=== PATIENT | female | born 1970 | race Caucasian/White ===

== ENCOUNTER 2016-11-10 11:46 | Emergency (ER) | payer SELFPAY ==
[~2016-11-10] VITALS: Ht 160 cm; Wt 67.3 kg
[2016-11-10 12:17] LABS: GLUCOSE,POINT OF CARE 94 MG/DL (70-110)
[2016-11-10 12:47] VITALS: BP 118/81
== END 2016-11-10 13:36 | disposition home or self-care (01) ==
LOC: EMS 11:56
DX: S89.91XA Unspecified injury of right lower leg, initial encounter (principal); X50.1XXA Overexertion from prolonged static or awkward postures, initial encounter; Y93.89 Activity, other specified; Y92.9 Unspecified place or not applicable; Y99.9 Unspecified external cause status; Z88.6 Allergy status to analgesic agent
CPT/HCPCS: 81025; 82962; 99284

== ENCOUNTER 2018-12-09 05:27 | Day surgery (SDC) | payer OTHER ==
[~2018-12-09] VITALS: Ht 160 cm; Wt 66.4 kg
[~2018-12-09 05:27] MED LIST: FLUT16H NASAL; LORA10TA7 PO; METF-960 PO
[2018-12-09] MEDS ORDERED: ROCURONIUM BROMIDE 10 MG/ML 5 ML VIAL IVP ONE (05:28)
[2018-12-09] MEDS ORDERED: LIDOCAINE/PF 2% 5 ML VIAL IM ONE (05:28)
[2018-12-09] MEDS ORDERED: ESMOLOL HCL 10 MG/ML 10 ML VIAL IVP ONE (05:28)
[2018-12-09] MEDS ORDERED: ONDANSETRON HCL 4 MG/2 ML VIAL IVP ONE (05:28)
[2018-12-09] MEDS ORDERED: PROPOFOL 1% 20 ML VIAL IVP ONE (05:28)
[2018-12-09] MEDS ORDERED: ALBUTEROL SULFATE HFA 90 MCG/PUFF 8 GM INHALER IH ONE (05:28)
[2018-12-09] MEDS ORDERED: KETOROLAC TROMETHAMINE 60 MG/2 ML VIAL IM ONE (05:28)
[2018-12-09] MEDS ORDERED: METOCLOPRAMIDE HCL 5 MG/ML 2 ML VIAL IVP ONE (05:28)
[2018-12-09] MEDS ORDERED: FentaNYL CITRATE-PF 100 MCG/2 ML VIAL IVP ONE (05:28)
[2018-12-09] MEDS ORDERED: MIDAZOLAM HCL 2 MG/2 ML VIAL IVP ONE (05:28)
[2018-12-09] MEDS ORDERED: RINGERS SOLUTION,LACTATED 1,000 ML IV ONE ×3 (05:31→08:32)
[2018-12-09] MEDS ORDERED: CeFAZolin 2 GM/DEXTROSE 50 ML IV ONE ×2 (05:32→07:30)
[2018-12-09 06:06] LABS: EOSINOPHILS % (AUTO) 2.7 % (1.0-6.0); HEMATOCRIT 44.3 % (36-46); HEMOGLOBIN 14.8 g/dL (12.0-16.0); LYMPHOCYTES # (AUTO) 2.1 K/uL (1.0-4.8); LYMPHOCYTES % (AUTO) 36.8 % (22.0-44.0); MEAN CORPUSCULAR HEMOGLOBIN 30.4 pg (26.0-34.0); MEAN CORPUSCULAR HGB CONC 33.3 G/dL (31.0-37.0); MEAN CORPUSCULAR VOLUME 91 fL (80-100); MONOCYTES # (AUTO) 0.3 K/uL (0.1-1.0); MONOCYTES % (AUTO) 5.7 % (2.0-9.0); NEUTROPHILS # (AUTO) 3.1 K/uL (1.8-7.7); NEUTROPHILS % (AUTO) 53.8 % (40.0-70.0); PLATELET COUNT (AUTO) 247 K/uL (150-450); RED BLOOD CELL COUNT(AUTO) 4.86 MIL/uL (4.00-5.20); RED CELL DISTRIBUTION WIDTH 14.4 % (11.5-14.5)
[2018-12-09 06:34] LABS: GLUCOMETER DEV NAME(LOC) SDS.; GLUCOSE,POINT OF CARE 118 MG/DL (70-110)
[2018-12-09] MEDS ORDERED: LIDOCAINE 2%/EPI 1:200,000/PF 20 ML VIAL ONE (06:52)
[2018-12-09] MEDS ORDERED: BUPIVACAINE HCL/PF 0.5% 30 ML VIAL ONE (06:52)
[2018-12-09] MEDS ORDERED: SUGAMMADEX SODIUM 200 MG/2 ML VIAL IVP ONE (08:10)
[2018-12-09] MEDS ORDERED: FentaNYL CITRATE-PF 100 MCG/2 ML VIAL IVP PRN (08:15)
[2018-12-09] MEDS ORDERED: MEPERIDINE-PF 25 MG/ML VIAL IVP PRN (08:15)
[2018-12-09] MEDS ORDERED: HYDROmorphone 2 MG/ML SYRINGE IVP PRN (08:15)
[2018-12-09] MEDS ORDERED: IBUPROFEN 800 MG TABLET PO PRN (08:45)
[2018-12-09] MEDS ORDERED: ACETAMINOPHEN 500 MG TABLET PO PRN (08:45)
[2018-12-09] MEDS ORDERED: HYDROmorphone 2 MG/ML SYRINGE ONE (09:12)
[2018-12-09] MEDS ORDERED: ONDANSETRON HCL 4 MG/2 ML VIAL ONE (09:15)
[2018-12-09] MEDS ORDERED: ONDANSETRON HCL 4 MG/2 ML VIAL IVP STA (09:19)
[2018-12-09] MEDS ORDERED: MEPERIDINE-PF 25 MG/ML VIAL ONE (09:26)
[2018-12-09] MEDS ORDERED: FentaNYL CITRATE-PF 100 MCG/2 ML VIAL ONE (09:26)
[2018-12-09] MEDS ORDERED: IBUPROFEN 800 MG TABLET ONE (10:16)
[2018-12-09] MEDS ORDERED: OXYGEN THERAPY IH SCH (20:00)
== END 2018-12-09 11:10 | disposition home or self-care (01) ==
LOC: SURGERY 05:27
PROVIDERS: ATTEND Surgery
DX: K43.6 Other and unspecified ventral hernia with obstruction, without gangrene (principal); M62.08 Separation of muscle (nontraumatic), other site; J45.909 Unspecified asthma, uncomplicated; Z83.3 Family history of diabetes mellitus; Z90.49 Acquired absence of other specified parts of digestive tract; Z98.890 Other specified postprocedural states; Z88.8 Allergy status to other drugs, medicaments and biological substances; Z79.899 Other long term (current) drug therapy; E11.9 Type 2 diabetes mellitus without complications
CPT/HCPCS: 36415; 49572; 82962; 84702; 85025; 88302; J0690 ×2; J1170; J1885; J2175; J2250; J2405; J2704; J2765; J3010; J3490 ×4; J7120; J3535